=== PATIENT | male | born 1995 | race Caucasian/White ===

== ENCOUNTER 2017-10-19 13:32 | Emergency (ER) | payer BC ==
[2017-10-19 13:38] VITALS: BP 120/67
--- NOTE | 2017-10-19 13:41 | EDPHY ---
HPI/HX/ROS/PE/MDM Narrative: CHIEF COMPLAINT: Hives HPI: The patient is a 21 y/o male complaining of waxing and waning, worsening hives, onset 4 days ago. While at work he was sitting in a chair covered in cob webs. When he went inside, he noticed red, swollen, itchy circles on his left arm. He initially thought these were spider bites and applied hydrocortisone to the affected areas. The next morning he noticed the rash was on his left and right upper extremity. He applied hydrocortisone again with only mild relief of his symptoms. He also began to take 50 mg PO Benadryl regularly; he last took this at 09:00, 5 hours ago. Yesterday he noticed that the rash had spread to both upper extremities, his buttock, hips, and both lower extremities; denies rash on his trunk. The rash also worsens every 6 hours and then shortly decreases in severity. Denies recent new medications, recent moves, contact with new animals , new detergents or soaps, wearing a shirt at night. Denies headache, sore throat, chest pain, shortness of breath, abdominal pain, urinary or bowel complaints, fever, numbness, paresthesias. REVIEW OF SYSTEMS: Aside from elements discussed in the HPI, a comprehensive 10-point review of systems was reviewed and is negative. PMH: Denies SOCIAL HISTORY: Single, employed at [employer], lives in [place] PHYSICAL EXAM: General: Patient is alert, in no acute distress. ENT: Eyes are normal to inspection. ENT inspection normal. No oropharyngeal or mucosal edema. Neck: Normal inspection. Full range of motion. Respiratory: No respiratory distress. Breath sounds normal bilaterally. Cardiovascular: Regular rate and rhythm. Strong peripheral pulses. Normal cap refill. Abdomen: The abdomen is nontender to palpation. There are no peritoneal signs. There are normal bowel sounds. Back: Normal to inspection. No tenderness to palpation. Skin: Scattered urticaria on left axilla and lower back. Normal color. Warm and dry. Extremities: Normal appearance. Full range of motion. Neuro: Oriented x3. Normal motor function. Normal sensory function. ED Course: 1350: Patient is not in acute anaphylaxis. He has scattered urticaria on his extremities of unclear etiology. He appears safe for outpatient management. I have prescribed him Prednisone for this rash and he will need close outpatient follow-up. Strict return precautions provided; patient is comfortable with this plan. General Time Seen by Provider: 10/19/17 13:40 Initial Vital Signs: Initial Vital Signs Temperature (C) 36.3 C 10/19/17 13:32 Heart Rate 61 10/19/17 13:32 Respiratory Rate 16 10/19/17 13:32 Blood Pressure 120/67 10/19/17 13:32 O2 Sat (%) 97 10/19/17 13:32 O2 Delivery Mode Room Air Allergies/Adverse Reactions: No Known Allergies Allergy (Verified 10/19/17 13:34) Home Medications: Medication Instructions Recorded predniSONE 60 mg PO DAILY 7 Days tab 10/19/17 Departure - Departure Disposition: Home, Routine, Self-Care Clinical Impression: Hives Allergic reaction Qualifiers: Encounter type: initial encounter Qualified Code(s): T78.40XA - Allergy, unspecified, initial encounter Condition: Good Instructions: Prednisone (By mouth), Urticaria (ED), Allergies (ED) Additional Instructions: Take prednisone as prescribed. Follow-up with your primary doctor within 72 hours. Use [id number] Benadryl as directed for itching. Return to the Emergency Department for shortness of breath, difficulty swallowing, difficulty breathing, worsening of rash, fever or other worsening of condition. When symptoms have completely subsided, follow up with an fuller brush man soon as possible to determine the cause of the allergic reaction. Referrals: [facility],. [Clinic] - As per Instructions Tommie Ray DO [Doctor of Osteopathy] - As per Instructions Prescriptions: predniSONE 60 mg PO DAILY 7 Days tab Report Scribed for: Washington Blackwell Report Scribed by: Shi Morel Date of Report: 10/19/17 Time of Report: 13:41 Physician Review and Approval Statement: Portions of this note were transcribed by an ED scribe. I personally performed the history, physical exam, and medical decision making; and confirm the accuracy of the information in the transcribed note.
== END 2017-10-19 14:25 | disposition home or self-care (01) ==
DX: L50.0 Allergic urticaria (principal)